=== PATIENT | male | born 1980 | race Caucasian/White ===

== ENCOUNTER 2020-08-05 01:35 | Emergency (ER) | payer OTHER ==
[~2020-08-05] VITALS: Ht 167.6 cm; Wt 81.6 kg
[2020-08-05 01:36] VITALS: BP 136/60
--- NOTE | 2020-08-05 01:36 | NUR ---
TO BED AMBULATORY
--- NOTE | 2020-08-05 01:50 | NUR ---
see complete assessment for more pt information.
[2020-08-05] MEDS ORDERED: LIDOCAINE MPF 1% 10 MG/ML VIAL INJ ONE (01:55)
[2020-08-05 03:35] VITALS: BP 136/60
--- NOTE | 2020-08-05 03:39 | NUR ---
Patient discharged with v/s stable. Written and verbal after care instructions given and explained. Patient verbalized understanding. Ambulatory with steady gait. All questions addressed prior to discharge. Advised to follow up with PMD.
== END 2020-08-05 03:39 | disposition home or self-care (01) ==
LOC: MED 01:35
DX: S61.012A Laceration without foreign body of left thumb without damage to nail, initial encounter (principal); W45.8XXA Other foreign body or object entering through skin, initial encounter; Y93.89 Activity, other specified; Y92.89 Other specified places as the place of occurrence of the external cause; Y99.8 Other external cause status
CPT/HCPCS: 12001; 99282; J2001

== ENCOUNTER 2021-05-30 10:54 | Emergency (ER) | payer OTHER ==
[~2021-05-30] VITALS: Ht 167.6 cm; Wt 79.4 kg
[2021-05-30 11:18] VITALS: BP 120/80
--- NOTE | 2021-05-30 11:23 | NUR ---
TENT 3
[2021-05-30] MEDS ORDERED: ALBU0.0912 IH (11:41)
[2021-05-30] MEDS ORDERED: NAPR-54 PO (11:41)
[2021-05-30] MEDS ORDERED: PROM118S5 PO (11:41)
--- NOTE | 2021-05-30 11:47 | NUR ---
pt assessed and discharged by danya thompson
--- NOTE | 2021-05-30 11:48 | NUR ---
Patient discharged with v/s stable. Written and verbal after care instructions given and explained. Patient alert, oriented and verbalized understanding of instructions. Ambulatory with steady gait. All questions addressed prior to discharge. ID band removed. Patient advised to follow up with PMD. Rx of albuterol, naproxen, and promethazine dm given. Patient educated on indication of medication including possible reaction and side effects. Opportunity to ask questions provided and answered.
[2021-05-30 15:52] VITALS: BP 120/80
== END 2021-05-30 15:52 | disposition home or self-care (01) ==
LOC: MED 10:54
DX: B34.9 Viral infection, unspecified (principal)
CPT/HCPCS: 71045; 99283; Q0092

== ENCOUNTER 2021-09-10 17:12 | Emergency (ER) | payer OTHER ==
[~2021-09-10] VITALS: Ht 167.6 cm; Wt 80.7 kg
[~2021-09-10 17:12] MED LIST: ALBU0.0912 IH; NAPR-54 PO; PROM118S5 PO
[2021-09-10 17:28] VITALS: BP 134/77
--- NOTE | 2021-09-10 17:44 | NUR ---
BEKAH NICOLE AT BEDSIDE EVALUATING PT
--- NOTE | 2021-09-10 17:59 | NUR ---
XR AT PT BEDSIDE
--- NOTE | 2021-09-10 18:00 | NUR ---
40 Y/O M C/O WORSENING RIGHT KNEE PAIN AND SWELLING X 3 DAYS. 8/10, THROBBING. DENIES TRAUMA OR INJURY TO AREA. TOOK NAPROXEN AT 9AM THIS MORNING. PMH: SHOULDER SURGERY (2014), GOUT MEDS: COLCHICIN, ALLOPURINOL NKA
[2021-09-10] MEDS ORDERED: KETOROLAC 30 MG/ML VIAL IM ONE (18:05)
[2021-09-10] MEDS ORDERED: ACET-8386 PO (18:33)
--- NOTE | 2021-09-10 18:57 | NUR ---
Patient discharged with v/s stable. Written and verbal after care instructions ABOUT KNEE EFFUSION AND KNEE SPRAIN given and explained. Patient alert, oriented and verbalized understanding of instructions. Ambulatory with steady gait. All questions addressed prior to discharge. ID band removed. Patient advised to follow up with PMD. Rx of NORCO 5-325MG given. Patient educated on indication of medication including possible reaction and side effects. Opportunity to ask questions provided and answered.
== END 2021-09-10 18:57 | disposition home or self-care (01) ==
LOC: MED 17:12
DX: M25.561 Pain in right knee (principal); Z79.899 Other long term (current) drug therapy; Z98.890 Other specified postprocedural states
CPT/HCPCS: 73562; 96372; 99283; J1885

== ENCOUNTER 2023-12-24 14:04 | Emergency (ER) | payer OTHER ==
[~2023-12-24] VITALS: Ht 167.6 cm; Wt 82.6 kg
[~2023-12-24 14:04] MED LIST changes: +ACET-8905 PO; +NAPR-337 PO; -NAPR-54 PO
[2023-12-24 14:17] VITALS: BP 103/64; PULSE 67; RESP 16; TEMP 97.8; O2SAT 97
[2023-12-24 14:48] LABS: BILIRUBIN,URINE NEGATIVE (NEGATIVE); BLOOD, URINE 3+ (NEGATIVE); COLOR,URINE YELLOW (YELLOW); LEUKOCYTE ESTERASE ,URINE NEGATIVE (NEGATIVE); NITRITE, URINE NEGATIVE (NEGATIVE); PROTEIN,URINE NEGATIVE (NEGATIVE); UGLUCOSE NEGATIVE (NEGATIVE); UROBILINOGEN,URINE 0.2 EU/dL (0.2 - 1)
[2023-12-24 14:50] LABS: APPEARANCE,URINE HAZY (CLEAR)
[2023-12-24 14:59] LABS: BASOPHILS % (AUTO) 0.6 % (0.0-2.0); EOSINOPHILS # (AUTO) 0.1 K/uL (0-0.4); EOSINOPHILS % (AUTO) 1.7 % (0.0-4.0); HEMATOCRIT 43.5 % (36-52); HEMOGLOBIN 14.7 g/dL (12.0-18.0); LYMPHOCYTES # (AUTO) 2.9 K/uL (2.0-11.5); LYMPHOCYTES % (AUTO) 44.4 % (20.5-51.1); MEAN CORPUSCULAR HEMOGLOBIN 31 pg (27-31); MEAN CORPUSCULAR HGB CONC 34 g/dL (33-37); MEAN CORPUSCULAR VOLUME 90.6 fL (80-94); MONOCYTES # (AUTO) 0.5 K/uL (0.8-1.0); MONOCYTES % (AUTO) 8.1 % (1.7-9.3); NEUTROPHILS % (AUTO) 45.2 % (42.2-75.2); PLATELET COUNT (AUTO) 354 K/uL (140-450); RED BLOOD CELL COUNT(AUTO) 4.81 MIL/uL (4.20-6.10); RED CELL DISTRIBUTION WIDTH 12.7 % (11.6-13.7); WHITE BLOOD COUNT (AUTO) 6.6 K/uL (4.8-10.8)
[2023-12-24 15:08] LABS: CALCIUM 8.7 mg/dL (8.5-10.1); CARBON DIOXIDE 29.1 mmol/L (21-32); CREATININE 1.2 mg/dL (0.6-1.3); POTASSIUM 4.1 mmol/L (3.5-5.1)
[2023-12-24 15:43] LABS: ALBUMIN 3.8 g/dL (3.4-5.0); BILIRUBIN,DIRECT 0.1 mg/dL (0.0-0.3); TOTAL BILIRUBIN 0.3 mg/dL (0.0-1.0); TOTAL PROTEIN, SERUM 7.1 g/dL (6.4-8.2)
[2023-12-24] MEDS ORDERED: ONDA-188 PO (16:00)
[2023-12-24] MEDS ORDERED: IBUP-2213 PO (16:00)
[2023-12-24] MEDS ORDERED: TAMS0.4C96 PO (16:00)
[2023-12-24 16:43] VITALS: BP 102/6; PULSE 72; RESP 16; TEMP 98; O2SAT 99
== END 2023-12-24 16:46 | disposition home or self-care (01) ==
LOC: MED 14:04
DX: N20.1 Calculus of ureter (principal); Z79.899 Other long term (current) drug therapy
CPT/HCPCS: 36415; 80048; 80076; 81003; 82550; 83690; 85025; 99284